=== PATIENT | male | born 1985 | race Caucasian/White ===

== ENCOUNTER 2016-07-26 18:28 | Emergency (ER) | payer OTHER ==
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
--- NOTE | 2016-07-26 20:25 | ED MED RECONCILIATION SUMMARY ---
Patient: TENISHA MOCTEZUMA Medication Reconciliation Report [facility] VisitID: [id number] [address] [place] [address] 30y, M Registration Date/Time: 07/26/2016 Weight: 108.8 kg Height/Length: 73 in. BMI: 31.7 ALLERGIES: Sulfa Drugs The patient's Home Medications are listed below: THE FOLLOWING MEDICATIONS NEED TO BE RECONCILED: Albuterol Inhalation, PRN Arcelia Oral 30 mg, daily Fluticasone Propionate Nasal Lisinopril Oral 5 mg, daily Ranitidine HCl Oral 150 mg, daily The source(s) of the original Home Medication information: Not obtained. The following Medications were given to the patient in the Emergency Department: Ibuprofen [PO] PO 800 mg, administered: 07/26/2016 7:00:00 PM The following Medications were prescribed to the patient: Flexeril 10 mg: Take 1 orally every 8 hours as needed for muscle spasm. Dispense twenty (20). No refills. Substitution is permissible. -- Valencia Laura, Keith.R.N.P. [place] 5 mg / 325 mg tablets: take 1 to 2 orally every 6 hours as needed for pain. Dispense fifteen (15). No refills. Substitution is permissible. -- Valencia Laura A.R.N.P. Motrin 800 mg tablets: take 1 tablet orally every 8 hours as needed for pain. Dispense thirty (30). No refills. Substitution is permissible. -- Valencia Laura A.R.N.P.
--- NOTE | 2016-07-26 20:25 | ED MED RECONCILIATION SUMMARY ---
Patient: TENISHA MOCTEZUMA Medication Reconciliation Report [facility] VisitID: [id number] [address] [place] [address] 30y, M Registration Date/Time: 07/26/2016 Weight: 108.8 kg Height/Length: 73 in. BMI: 31.7 ALLERGIES: Sulfa Drugs The patient's Home Medications are listed below: THE FOLLOWING MEDICATIONS NEED TO BE RECONCILED: Albuterol Inhalation, PRN Arcelia Oral 30 mg, daily Fluticasone Propionate Nasal Lisinopril Oral 5 mg, daily Ranitidine HCl Oral 150 mg, daily The source(s) of the original Home Medication information: Not obtained. The following Medications were given to the patient in the Emergency Department: Ibuprofen [PO] PO 800 mg, administered: 07/26/2016 7:00:00 PM The following Medications were prescribed to the patient: Flexeril 10 mg: Take 1 orally every 8 hours as needed for muscle spasm. Dispense twenty (20). No refills. Substitution is permissible. -- Valencia Laura, Keith.R.N.P. [place] 5 mg / 325 mg tablets: take 1 to 2 orally every 6 hours as needed for pain. Dispense fifteen (15). No refills. Substitution is permissible. -- Valencia Laura A.R.N.P. Motrin 800 mg tablets: take 1 tablet orally every 8 hours as needed for pain. Dispense thirty (30). No refills. Substitution is permissible. -- Valencia Laura A.R.N.P.
--- NOTE | 2016-07-26 20:25 | ED MAR SUMMARY ---
..... Medication Administration Record [facility] [address] [place] [address] Patient: TENISHA MOCTEZUMA Visit ID: [id number] 30y, M Weight: 108.8 kg Height/Length: 73 in BMI: 31.7 ALLERGIES: Sulfa Drugs Given 19:00 07/26/2016 Arnulfo, Nessa Hernandez Medication Administered: IBUPROFEN [PO], Dose: 800 mg Tablets PO. Medication Ordered: Ibuprofen PO 800 mg (NOW).
--- NOTE | 2016-07-26 20:25 | ED ORDER SUMMARY ---
..... Patient: TENISHA MOCTEZUMA OrderSheet [facility] VisitID: [id number] [address] [place] [address] 30y, M Registration Date/Time: 07/26/2016 ORDER SHEET Weight: 108.8 kg (stated) Allergies: Sulfa Drugs GENERAL ORDERS: MEDICATION ORDERS: Ibuprofen PO 800 mg (NOW) (19:13 07/26/2016 DDean R.N. per protocol) (19:14 DDean R.N.) IV FLUIDS: ORDER SHEET NOTES: [Electronically signed by Mary Arredondo R.N. (19:14 07/26/2016)] [Electronically signed by Valencia Laura (20:22 07/26/2016)] [Electronically locked/signed by Mary Arredondo R.N. (19:14 07/26/2016)]
--- NOTE | 2016-07-26 20:25 | ED ORDER SUMMARY ---
..... Patient: TENISHA MOCTEZUMA OrderSheet [facility] VisitID: [id number] [address] [place] [address] 30y, M Registration Date/Time: 07/26/2016 ORDER SHEET Weight: 108.8 kg (stated) Allergies: Sulfa Drugs GENERAL ORDERS: MEDICATION ORDERS: Ibuprofen PO 800 mg (NOW) (19:13 07/26/2016 DDean R.N. per protocol) (19:14 DDean R.N.) IV FLUIDS: ORDER SHEET NOTES: [Electronically signed by Mary Arredondo R.N. (19:14 07/26/2016)] [Electronically signed by Valencia Laura (20:22 07/26/2016)] [Electronically locked/signed by Mary Arredondo R.N. (19:14 07/26/2016)]
--- NOTE | 2016-07-26 20:25 | ED MAR SUMMARY ---
..... Medication Administration Record [facility] [address] [place] [address] Patient: TENISHA MOCTEZUMA Visit ID: [id number] 30y, M Weight: 108.8 kg Height/Length: 73 in BMI: 31.7 ALLERGIES: Sulfa Drugs Given 19:00 07/26/2016 Arnulfo, Nessa Hernandez Medication Administered: IBUPROFEN [PO], Dose: 800 mg Tablets PO. Medication Ordered: Ibuprofen PO 800 mg (NOW).
== END 2016-07-26 19:00 | disposition home or self-care (01) ==
LOC: ED SRH 18:28
DX: S16.1XXA Strain of muscle, fascia and tendon at neck level, initial encounter (principal); V43.51XA Car driver injured in collision with sport utility vehicle in traffic accident, initial encounter; Y93.89 Activity, other specified; Y92.9 Unspecified place or not applicable; Y99.9 Unspecified external cause status; Z88.2 Allergy status to sulfonamides